=== PATIENT | female | born 1990 | race African-American/Black ===

== ENCOUNTER 2018-06-05 19:23 | Emergency (ER) | payer OTHER ==
[~2018-06-05] VITALS: Ht 172.7 cm; Wt 59.0 kg
[2018-06-05 19:35] VITALS: BP 116/40
[2018-06-05] MEDS ORDERED: NAPROSYN500 MG PO (20:11)
== END 2018-06-05 20:20 | disposition home or self-care (01) ==
LOC: ER 19:23
DX: M25.521 Pain in right elbow (principal); M25.562 Pain in left knee; M25.561 Pain in right knee